=== PATIENT | female | born 1950 | race Caucasian/White ===

== ENCOUNTER 2018-08-20 06:31 | Day surgery (SDC) | payer OTHER ==
[2018-08-12 10:51] VITALS: BMI 25.2
[2018-08-20] MEDS ORDERED: BUPIVACAINE HCL/EPINEPHRINE/PF 30 ML VIAL IJ ONE (09:51)
[2018-08-20] MEDS ORDERED: PROPOFOL 20 ML ONE ×2 (09:58)
[2018-08-20] MEDS ORDERED: MIDAZOLAM HCL 2 MG/2 ML SINGLE DOSE VIAL ONE (09:59)
[2018-08-20] MEDS ORDERED: LIDOCAINE HCL/PF 2% SDV 5ML VIAL ONE (10:09)
[2018-08-20] MEDS ORDERED: DESFLURANE GAS 240 ML BOTTLE IH ONE (10:14)
[2018-08-20] MEDS ORDERED: ceFAZolin SODIUM 1 GM VIAL ONE (10:29)
[2018-08-20] MEDS ORDERED: ONDANSETRON 4 MG/2 ML VIAL IVPUSH ONE (11:07)
[2018-08-20] MEDS ORDERED: oxyCODONE HCL 5 MG TABLET PO PRN (11:09)
[2018-08-20] MEDS ORDERED: ONDANSETRON 4 MG/2 ML VIAL IVPUSH PRN (11:09)
[2018-08-20] MEDS ORDERED: LACTATED RINGERS SOLUTION 1,000 ML IV SCH (11:15)
--- NOTE | 2018-08-20 11:18 | OP ---
Operative Note - Note: Operative Date: 08/20/18 Pre-Operative Diagnosis: left knee pain s/p knee arthroplasty, synovitis, stiffness Operation: LKA, lateral release, quad release, culture, and manipulation Post-Operative Diagnosis: Same as Pre-op Surgeon: Eriberto Spivey Anesthesiologist/ROVING INSPECTOR: Dylon Hunter Operative Report Dictated: Yes
--- NOTE | 2018-08-20 11:19 | DS ---
Physical Examination Vital Signs: Vital Signs Temperature 97.7 F 08/20/18 07:14 Pulse Rate 67 08/20/18 07:14 Respiratory Rate 15 08/20/18 07:14 Blood Pressure 126/77 08/20/18 07:14 O2 Sat by Pulse Oximetry (%) 100 08/20/18 07:14 Discharge Summary Reason For Visit: LEFT KNEE STIFFNESS, OSTEOARTHRITIS, S/P LEFT KNEE Condition: Good - Instructions Diet, Activity, Other Instructions: Post Operative Instructions: Knee Arthroscopy Dr Eriberto Spivey 1. Pain following an arthroscopy is variable. Some patients will have more pain than others. You have been provided with a prescription for medication that contains a narcotic. You are not allowed to drive while on this medication. You should NOT take Tylenol (Acetaminophen) when taking the pain medication ( it will result in an overdose). Feel free to take medications such as Ibuprofen or Naprosyn in addition to the pain medicine if you do not have any problems with the NSAID class of medications. 2. You are allowed to remove the bandages and shower in 48 hours unless directed otherwise. You are not allowed to bathe or go swimming until the sutures are removed. Put band-aids on the sutures after your shower and do not put any creams or lotions over the incisions. 3. You are allowed to put all your weight on the leg and bend your knee, unless directed otherwise. 4. Apply ice to the knee for 15 min every hour or so. You may continue this for as many days as you like. 5. Please call the office to schedule a visit to have your sutures removed. 6. If for any reason you believe you may have an infection or are concerned, please feel free to call me. I can be reached through our office number 24 hours a day. 7. Please call our office with any questions; we will review the surgical findings during your post operative visit. Disposition: HOME - Home Medications Comprehensive Discharge Medication List: Ambulatory Orders Alendronate Sodium [Binosto] 70 mg PO WEEKLY 08/12/18 Famotidine [Pepcid] 20 mg PO PRN PRN 08/12/18 Levothyroxine [Synthroid -] 112 mcg PO DAILY 08/12/18 Tacrolimus Anhydrous [Prograf] 2 mg PO BID 08/12/18
[2018-08-20] MEDS ORDERED: oxyCODONE HCL 5 MG TABLET ONE (13:30)
[2018-08-20 14:12] VITALS: BP 118/67; PULSE 62; TEMP 97.8
--- NOTE | 2018-08-23 18:04 | PATH ---
Surgical Pathology Report Patient Name: RUPERT SCANLON Med. Rec. #: [id number] /Age/Gender: 1950 (Age: 68) / F Account: [id number] Location: [facility] Taken: 08/20/2018 Received: 08/20/2018 Reported: 08/23/2018 Physicians: Eriberto Spivey M.D. Specimen(s) Received SHAVINGS LEFT KNEE Clinical History Left knee stiffness, osteoarthritis Final Diagnosis KNEE SHAVINGS, LEFT, ARTHROSCOPY: FRAGMENTS OF FIBROSYNOVIAL TISSUE WITH MILD CHRONIC INFLAMMATION, HISTIOCYTIC INFILTRATE, AND REACTIVE CHANGES. NO SIGNIFICANT ACUTE INFLAMMATION IDENTIFIED. Electronically Signed Sola Casillas M.D. Gross Description Received in formalin labeled "shavings left knee," is a 2.5 x 1.5 x 0.3 cm aggregate of hood-yellow soft tissue fragments. The formalin is filtered and the specimen is entirely submitted in one cassette. /08/20/2018 saudi08/20/2018
== END 2018-08-20 14:00 | disposition home or self-care (01) ==
LOC: FASU 06:31
PROVIDERS: ATTEND Orthopaedic Surgery
PROC: 0SCD4ZZ Extirpation of Matter from Left Knee Joint, Percutaneous Endoscopic Approach (ICD-10-PCS; 2018-08-20)
PROC: 0MNP4ZZ Release Left Knee Bursa and Ligament, Percutaneous Endoscopic Approach (ICD-10-PCS; principal; 2018-08-20 10:28)
PROC: 0SBD4ZZ Excision of Left Knee Joint, Percutaneous Endoscopic Approach (ICD-10-PCS; 2018-08-20 10:28)
DX: M25.662 Stiffness of left knee, not elsewhere classified (principal); M65.862 Other synovitis and tenosynovitis, left lower leg; G89.18 Other acute postprocedural pain
CPT/HCPCS: 87070; 87205; 88304-TC; 94760